=== PATIENT | male | born 1970 | race Two or more races ===

== ENCOUNTER 2018-10-02 16:38 | Emergency (ER) | payer OTHER ==
[~2018-10-02] VITALS: Ht 167.6 cm; Wt 88.5 kg
[~2018-10-02 16:38] MED LIST: BENICAR40 MG
== END 2018-10-02 19:58 | disposition home or self-care (01) ==
LOC: ER 16:38
DX: H66.41 Suppurative otitis media, unspecified, right ear (principal)

== ENCOUNTER 2019-05-10 18:47 | Emergency (ER) | payer OTHER ==
[~2019-05-10] VITALS: Ht 170.2 cm; Wt 104.3 kg
[2019-05-10] MEDS ORDERED: [UNRECOGNIZED DRUG - OTHER] (19:33)
[2019-05-10] MEDS ORDERED: AMPICILLIN SOD500 MG (19:33)
[2019-05-10] MEDS ORDERED: KETO10TA2 PO (21:13)
[2019-05-10] MEDS ORDERED: ZITHROMAX500 MG PO (21:13)
== END 2019-05-10 22:07 | disposition home or self-care (01) ==
LOC: ER 18:47
DX: H66.93 Otitis media, unspecified, bilateral (principal); H60.8X2 Other otitis externa, left ear

== ENCOUNTER 2019-05-20 13:26 | Emergency (ER) | payer OTHER ==
[~2019-05-20] VITALS: Ht 170.2 cm; Wt 104.3 kg
[~2019-05-20 13:26] MED LIST changes: +AMPICILLIN SOD500 MG; +KETO10TA2 PO; +ZITHROMAX500 MG PO; +[UNRECOGNIZED DRUG - OTHER]
== END 2019-05-20 16:44 | disposition home or self-care (01) ==
LOC: ER 13:26
DX: M75.81 Other shoulder lesions, right shoulder (principal)

== ENCOUNTER 2024-02-18 22:39 | Emergency (ER) | payer OTHER ==
[~2024-02-18] VITALS: Ht 172.7 cm; Wt 104.3 kg
[2024-02-18] MEDS ORDERED: COZAAR50 MG (23:31)
[2024-02-18] MEDS ORDERED: ENALAPRILAT DIHYDRATE 2.5 MG/2 ML VIAL IV ONE (23:45)
[2024-02-19] MEDS ORDERED: LABETALOL HCL 100 MG/20 ML ML IV PUSH STA (00:12)
[2024-02-19 00:44] LABS: HEMATOCRIT 42.9 % (39.0-48.0); HEMOGLOBIN 14.3 g/dL (13-16.00); MEAN CORPUSCULAR HEMOGLOBIN 27.9 pg (27.00-32.0); MEAN CORPUSCULAR HGB CONC 33.3 g/dl (32.0-36.0); PLATELET COUNT 279 K/uL (150-450); RED BLOOD COUNT 5.11 M/uL (4.00-6.00); RED CELL DISTRIBUTION WIDTH 14.6 % (11.5-14.5)
[2024-02-19 01:17] LABS: ALBUMIN 4.2 gm/dL (3.4-5.0); BILIRUBIN TOTAL 0.75 mg/dL (0.3-1.2); CALCIUM 9.7 mg/dL (8.5-10.1); CREATININE SERUM 1.28 mg/dL (0.70-1.30); GFR 58.35; GLOBULINA 4.7 G/DL (2.4-3.5); POTASSIUM 3.48 mEq/L (3.5-5.1); TOTAL PROTEIN 8.9 gm/dL (6.4-8.2)
== END 2024-02-19 03:05 | disposition home or self-care (01) ==
LOC: ER 22:40
PROVIDERS: Emergency Medicine
DX: R53.81 Other malaise (principal); I10 Essential (primary) hypertension; Z20.822 Contact with and (suspected) exposure to COVID-19